=== PATIENT | male | born 1970 | race Caucasian/White ===

== ENCOUNTER 2017-09-28 15:21 | Emergency (ER) | payer OTHER ==
[2017-09-28 15:54] VITALS: BP 134/83
--- NOTE | 2017-09-28 16:43 | UC ---
Dental HPI - HPI Summary HPI Summary: 47 yo WM male c/o left jaw 'heaviness" x few days associated with constantly chewing tobacco since he was 19 years old, also c/o of vague stomach discomfort in periumbilicus. Denies CP/SOB/hemiparesis or paresthesia - History of Current Complaint Chief Complaint: UCGeneralIllness Stated Complaint: STOMACH ACHE/FUZZY IN HEAD Time Seen by Provider: 09/28/17 16:00 Hx Obtained From: Patient Onset/Duration: Lasting Days, Still Present, Other - years Severity: Moderate Pain Intensity: 0 Related History: TMJ Dysfunction - Allergies/Home Medications Allergies/Adverse Reactions: Allergies Allergy/AdvReac Type Severity Reaction Status Date / Time No Known Allergies Allergy Verified 09/28/17 15:41 Home Medications: Home Medications Cholesterol Med DAILY 09/28/17 [History] Lisinopril [Lisinopril 30 MG-] 30 mg PO DAILY 09/28/17 [History Confirmed ] PMH/Surg Hx/FS Hx/Imm Hx Previously Healthy: Yes - Surgical History Surgical History: None - Social History Alcohol Use: Weekly Substance Use Type: None Smoking Status (MU): Former Smoker Type: Smokeless Tobacco Amount Used/How Often: 1 can per day Length of Time of Smoking/Using Tobacco: 25 yrs - Immunization History Most Recent Influenza Vaccination: has not had Review of Systems Constitutional: Negative Skin: Negative Eyes: Negative ENT: Other - B/L TMJ pain L>R Respiratory: Negative Cardiovascular: Negative Gastrointestinal: Negative Genitourinary: Negative Motor: Negative Neurovascular: Negative Musculoskeletal: Negative Neurological: Negative Psychological: Negative All Other Systems Reviewed And Are Negative: Yes Physical Exam Triage Information Reviewed: Yes Appearance: Obese Vital Signs: Initial Vital Signs Temp 36.8 C 09/28/17 15:43 Pulse 91 09/28/17 15:43 Resp 18 09/28/17 15:43 BP 134/83 09/28/17 15:43 Pulse Ox 97 09/28/17 15:43 Eye Exam: Normal ENT Exam: Normal ENT: Positive: Pharynx normal, TMs normal, Other - clicking sound on lowering mandible. Negative: Nasal congestion, Nasal drainage, TM bulging, TM dull, TM red, Tonsillar swelling, Tonsillar exudate, Trismus, Muffled voice Dental Exam: Normal Neck exam: Normal Neck: Positive: 1 Respiratory Exam: Normal Cardiovascular Exam: Normal Abdominal Exam: Normal Musculoskeletal Exam: Normal Neurological Exam: Normal Psychological Exam: Normal Skin Exam: Normal Dental Complaint Course/Dx - Course Course Of Treatment: pt is concerned about getting CA or storke given cardiac event hx in his father, pt is obese with a metabolic syndrome not yet a diabetic , referred to [facility], and a dentist for his TMJ arthralgia - Differential Dx/Diagnosis Differential Diagnosis/Dx: Dental Abscess, Dental Caries, Gingivitis, TMJ Syndrome Provider Diagnoses: TMJ arthralgia. metabolic syndrome Discharge - Sign-Out/Discharge Documenting (check all that apply): Discharge/Admit/Transfer - Discharge Plan Condition: Stable Disposition: HOME Patient Education Materials: Temporomandibular Disorder (ED) Referrals: [facility] [Medical Doctor] - Michael Rubin NP [Primary Care Provider] - Additional Instructions: please follow up with dentist and Toni Gutierrez - Billing Disposition and Condition Condition: STABLE Disposition: HOME
== END 2017-09-28 16:37 | disposition home or self-care (01) ==
LOC: UCCORT 15:21
DX: M26.629 Arthralgia of temporomandibular joint, unspecified side (principal); E88.81 Metabolic syndrome and other insulin resistance; Z87.891 Personal history of nicotine dependence; F17.220 Nicotine dependence, chewing tobacco, uncomplicated
CPT/HCPCS: 93005; 99201; G0463